=== PATIENT | female | born 1960 | race Caucasian/White ===

== ENCOUNTER 2018-02-10 14:17 | Outpatient (CLI) | payer MEDICAID ==
[~2018-02-10 14:17] MED LIST: ACYC400T PO; ASCO500C15 PO; ASPI-611 PO; CLA10T PO; FLUT16SP26 BOTHNARES; MULT-933 PO; MYC15CR TOP; ZET10T PO; ZOLP5TAB8 PO
== END 2018-02-10 23:59 | disposition home or self-care (01) ==
LOC: RT 14:17
PROVIDERS: ATTEND Internal Medicine Pulmonary Disease
DX: J44.9 Chronic obstructive pulmonary disease, unspecified (principal); Z88.0 Allergy status to penicillin; Z88.5 Allergy status to narcotic agent; Z88.1 Allergy status to other antibiotic agents; Z79.82 Long term (current) use of aspirin; Z90.710 Acquired absence of both cervix and uterus
CPT/HCPCS: 94010; 94727; 94729

== ENCOUNTER 2018-07-21 14:11 | Outpatient (CLI) | payer MEDICAID | END 2018-07-21 23:59 | disposition home or self-care (01) | LOC: RAD 14:11 | PROVIDERS: ATTEND Internal Medicine Gastroenterology | DX: R13.11 Dysphagia, oral phase (principal); Z53.9 Procedure and treatment not carried out, unspecified reason ==

== ENCOUNTER 2020-06-05 17:29 | Emergency (ER) | payer MEDICAID ==
[~2020-06-05] VITALS: Ht 152.4 cm; Wt 79.5 kg
[~2020-06-05 17:29] MED LIST changes: -ASCO500C15 PO; +ASCO500C18 PO
--- NOTE | 2020-06-05 17:55 | NUR ---
REQUESTED ED BED TO [facility]. CHARGE AWARE OF PT VSs and COVID possitve status, awaiting open bed.
[2020-06-05 18:54] LABS: BASOPHILS % (AUTO) 0.6 % (0-1); EOSINOPHILS % (AUTO) 0.3 % (0-6); HEMATOCRIT 45.9 % (35.0-45.0); HEMOGLOBIN 15.9 g/dl (12.0-16.0); LYMPHOCYTES # (AUTO) 1.5 X10'3 (1.1-4.8); LYMPHOCYTES % (AUTO) 24.6 % (21-51); MEAN CORPUSCULAR HEMOGLOBIN 31.7 PG (27.0-31.0); MEAN CORPUSCULAR HGB CONC 34.6 g/dL (33.0-36.5); MEAN CORPUSCULAR VOLUME 91.7 FL (78-98); MEAN PLATELET VOLUME 7.7 FL (7.4-10.4); MONOCYTES # (AUTO) 0.8 X10'3 (0-0.9); MONOCYTES % (AUTO) 13.2 % (2-12); NEUTROPHILS # (AUTO) 3.7 X10'3 (1.8-7.7); NEUTROPHILS % (AUTO) 61.3 % (42-75); PLATELET COUNT 246 X10'3 (140-440); RED BLOOD COUNT 5.01 X10'6 (4.20-5.60); RED CELL DISTRIBUTION WIDTH 13.3 % (11.5-14.5); WHITE BLOOD COUNT 6.1 X10'3 (4.5-11.0)
[2020-06-05 19:09] LABS: ALANINE AMINOTRANSFERASE 61 U/L (12-78); ALBUMIN 4.1 G/DL (3.4-5.0); ALBUMIN/GLOBULIN RATIO 1.1 (1.1-1.5); ALKALINE PHOSPHATASE 113 IU/L (46-116); ANION GAP 10 (8-16); ASPARTATE AMINO TRANSFERASE 40 U/L (10-37); BILIRUBIN,TOTAL 0.7 MG/DL (0.1-1.0); BLOOD UREA NITROGEN 20 MG/DL (7-18); BUN/CREATININE RATIO 21.7 (6.6-38.0); CALCIUM 9.2 MG/DL (8.5-10.1); CHLORIDE 105 MMOL/L (99-107); CREATININE 0.92 MG/DL (0.40-0.90); GLUCOSE 122 MG/DL (70-104); POTASSIUM 3.7 MMOL/L (3.5-5.1); SODIUM 142 MMOL/L (135-145); TOTAL CARBON DIOXIDE 27.1 MMOL/L (24-32); TOTAL PROTEIN 7.9 G/DL (6.4-8.2); eGFR 62 ML/MIN
[2020-06-05] MEDS ORDERED: [UNRECOGNIZED DRUG - OTHER] IV ONE (19:50)
[2020-06-05] MEDS ORDERED: normal saline 1000ML IV soln IVB ONE (19:50)
[2020-06-05] MEDS ORDERED: benzonatate 100mg capsule PO ONE (19:50)
[2020-06-05] MEDS ORDERED: acetaminophen 325mg tablet PO ONE (20:00)
--- NOTE | 2020-06-05 21:17 | NUR ---
PT COMPLAINING OF LEG MUSCLE CRAMPS AND WORRIED ITS A SIDE AFFECT OF INFUSION. LUCIUS CHONG NOTIFIED AND VERBAL ORDER FOR 25 MG BENADRYL PO AND 30 MG TORADOL IV
[2020-06-05] MEDS ORDERED: ketorolac trometh. 30mg/ml inj. IV ONE (21:20)
[2020-06-05] MEDS ORDERED: diphenhydrAMINE 25mg capsule PO ONE (21:20)
--- NOTE | 2020-06-05 21:34 | NUR ---
gave pt casirivimab and imdevimab infusion, stayed in room for first 15 minutes and performed q 15 vitals, there was no adverse reactions noted during transfusion.
[2020-06-05 22:55] VITALS: BP 131/64
== END 2020-06-05 22:45 | disposition home or self-care (01) ==
LOC: ER 17:29
DX: U07.1 COVID-19 (principal); R05 Cough; R11.0 Nausea; R06.02 Shortness of breath; R07.89 Other chest pain; I10 Essential (primary) hypertension; G89.29 Other chronic pain; Z86.73 Personal history of transient ischemic attack (TIA), and cerebral infarction without residual deficits; Z86.69 Personal history of other diseases of the nervous system and sense organs; Z90.710 Acquired absence of both cervix and uterus; Z98.890 Other specified postprocedural states; Z88.0 Allergy status to penicillin; Z88.5 Allergy status to narcotic agent; Z88.8 Allergy status to other drugs, medicaments and biological substances; Z79.2 Long term (current) use of antibiotics; Z79.82 Long term (current) use of aspirin; Z79.899 Other long term (current) drug therapy
CPT/HCPCS: 36415; 71045; 80053; 83605; 83880; 84145; 85025; 87040; 96361; 96365; 96375; 99285; J1885; J7030; J7050; Q0163

== ENCOUNTER 2020-07-13 17:02 | Emergency (ER) | payer MEDICAID ==
[~2020-07-13] VITALS: Ht 152.4 cm; Wt 80.7 kg
[2020-07-13 17:43] LABS: BASOPHILS # (AUTO) 0.1 X10'3 (0-0.2); BASOPHILS % (AUTO) 0.7 % (0-1); EOSINOPHILS # (AUTO) 0.2 X10'3 (0-0.9); HEMATOCRIT 42.9 % (35.0-45.0); HEMOGLOBIN 14.9 g/dl (12.0-16.0); LYMPHOCYTES # (AUTO) 2.5 X10'3 (1.1-4.8); LYMPHOCYTES % (AUTO) 27.5 % (21-51); MEAN CORPUSCULAR HEMOGLOBIN 32.4 PG (27.0-31.0); MEAN CORPUSCULAR HGB CONC 34.8 g/dL (33.0-36.5); MEAN CORPUSCULAR VOLUME 93.1 FL (78-98); MONOCYTES # (AUTO) 0.8 X10'3 (0-0.9); MONOCYTES % (AUTO) 8.8 % (2-12); NEUTROPHILS # (AUTO) 5.5 X10'3 (1.8-7.7); PLATELET COUNT 248 X10'3 (140-440); RED BLOOD COUNT 4.61 X10'6 (4.20-5.60); WHITE BLOOD COUNT 9.1 X10'3 (4.5-11.0)
[2020-07-13 17:58] LABS: ALANINE AMINOTRANSFERASE 46 U/L (12-78); ALBUMIN 3.9 G/DL (3.4-5.0); ALBUMIN/GLOBULIN RATIO 1.1 (1.1-1.5); ALKALINE PHOSPHATASE 106 IU/L (46-116); ANION GAP 9 (8-16); BILIRUBIN,TOTAL 0.6 MG/DL (0.1-1.0); BLOOD UREA NITROGEN 24 MG/DL (7-18); BUN/CREATININE RATIO 27.6 (6.6-38.0); CHLORIDE 106 MMOL/L (99-107); CREATININE 0.87 MG/DL (0.40-0.90); GLUCOSE 119 MG/DL (70-104); SODIUM 139 MMOL/L (135-145); TOTAL CARBON DIOXIDE 23.6 MMOL/L (24-32); TOTAL PROTEIN 7.5 G/DL (6.4-8.2); eGFR 67 ML/MIN
[2020-07-13 18:00] LABS: POTASSIUM 4.2 MMOL/L (3.5-5.1)
[2020-07-13 18:01] LABS: ASPARTATE AMINO TRANSFERASE 36 U/L (10-37)
[2020-07-13 18:23] VITALS: BP 136/77
== END 2020-07-13 18:25 | disposition home or self-care (01) ==
LOC: ER 17:02
DX: R07.89 Other chest pain (principal); M79.89 Other specified soft tissue disorders; I10 Essential (primary) hypertension; G89.29 Other chronic pain; Z86.73 Personal history of transient ischemic attack (TIA), and cerebral infarction without residual deficits; Z86.69 Personal history of other diseases of the nervous system and sense organs; Z90.710 Acquired absence of both cervix and uterus; Z98.890 Other specified postprocedural states; Z88.5 Allergy status to narcotic agent; Z88.0 Allergy status to penicillin; Z88.8 Allergy status to other drugs, medicaments and biological substances; Z79.2 Long term (current) use of antibiotics; Z79.899 Other long term (current) drug therapy
CPT/HCPCS: 36415; 71045; 80053; 83880; 84484; 85025; 93005; 99285

== ENCOUNTER 2020-12-08 15:07 | Emergency (ER) | payer MEDICAID ==
[~2020-12-08] VITALS: Ht 152.4 cm; Wt 81.8 kg
[~2020-12-08 15:07] MED LIST changes: +ACYC-126 PO; -ACYC400T PO
[2020-12-08 15:57] LABS: BASOPHILS % (AUTO) 0.2 % (0-1); EOSINOPHILS # (AUTO) 0.1 X10'3 (0-0.9); EOSINOPHILS % (AUTO) 1.6 % (0-6); HEMATOCRIT 42.5 % (35.0-45.0); HEMOGLOBIN 14.7 g/dl (12.0-16.0); LYMPHOCYTES # (AUTO) 2.6 X10'3 (1.1-4.8); LYMPHOCYTES % (AUTO) 33.1 % (21-51); MEAN CORPUSCULAR HGB CONC 34.5 g/dL (33.0-36.5); MEAN CORPUSCULAR VOLUME 92.7 FL (78-98); MEAN PLATELET VOLUME 8.1 FL (7.4-10.4); MONOCYTES # (AUTO) 0.5 X10'3 (0-0.9); MONOCYTES % (AUTO) 6.6 % (2-12); NEUTROPHILS # (AUTO) 4.6 X10'3 (1.8-7.7); NEUTROPHILS % (AUTO) 58.5 % (42-75); PLATELET COUNT 213 X10'3 (140-440); RED BLOOD COUNT 4.59 X10'6 (4.20-5.60); RED CELL DISTRIBUTION WIDTH 13.6 % (11.5-14.5); WHITE BLOOD COUNT 7.8 X10'3 (4.5-11.0)
[2020-12-08 16:02] LABS: ALANINE AMINOTRANSFERASE 39 U/L (12-78); ALBUMIN 3.8 G/DL (3.4-5.0); ALBUMIN/GLOBULIN RATIO 1.1 (1.1-1.5); ALKALINE PHOSPHATASE 105 IU/L (46-116); ANION GAP 8 (8-16); ASPARTATE AMINO TRANSFERASE 29 U/L (10-37); BILIRUBIN,TOTAL 0.8 MG/DL (0.1-1.0); BLOOD UREA NITROGEN 18 MG/DL (7-18); BUN/CREATININE RATIO 19.6 (6.6-38.0); CALCIUM 8.8 MG/DL (8.5-10.1); CHLORIDE 107 MMOL/L (99-107); CREATININE 0.92 MG/DL (0.40-0.90); GLUCOSE 124 MG/DL (70-104); POTASSIUM 3.8 MMOL/L (3.5-5.1); SODIUM 142 MMOL/L (135-145); TOTAL CARBON DIOXIDE 27.1 MMOL/L (24-32); TOTAL PROTEIN 7.2 G/DL (6.4-8.2); eGFR 62 ML/MIN
--- NOTE | 2020-12-08 16:25 | NUR ---
DR. GEE AT BEDSIDE.
[2020-12-08] MEDS ORDERED: iohexol 350MG/ML 100ml bottle IV ONE (16:48)
--- NOTE | 2020-12-08 17:03 | NUR ---
patient back from ct.
--- NOTE | 2020-12-08 17:52 | NUR ---
awaiting tele neuro consult,monitor inside the room.
--- NOTE | 2020-12-08 19:48 | NUR ---
Pt will have MRI tomorrow morning
[2020-12-08] MEDS ORDERED: morphine 2 MG/ML inj. syringe IV PRN (19:50)
[2020-12-08] MEDS ORDERED: acetaminophen 325mg tablet PO PRN ×2 (19:50)
[2020-12-08] MEDS ORDERED: HYDROcodone/acetaminophen 5mg/325mg tablet PO PRN (19:50)
[2020-12-08] MEDS ORDERED: magnesium 2GM in 50ml NS 50 ML IV PRN (19:50)
[2020-12-08] MEDS ORDERED: mag hydrox/Alum hydrox/simeth 30ml oral suspension PO PRN (19:50)
[2020-12-08] MEDS ORDERED: magnesium hydroxide 30ml (MOM) UD suspension PO PRN (19:50)
[2020-12-08] MEDS ORDERED: magnesium Cl slow-release 64mg tablet PO PRN (19:50)
[2020-12-08] MEDS ORDERED: magnesium 4gm in 100ml NS 100 ML IV PRN (19:50)
[2020-12-08] MEDS ORDERED: ondansetron/PF 4mg/2ml inj IV PRN (19:50)
[2020-12-08] MEDS ORDERED: potassium Cl 20 mEq SR tablet PO PRN ×2 (19:50)
[2020-12-08] MEDS ORDERED: potassium Cl 40MEQ/1/2NS 520ml 520 ML IV PRN ×2 (19:50)
[2020-12-08] MEDS: K and/or MAG REPLACEMENT MC SCH (20:00)
[2020-12-08] MEDS: heparin, porcine 5000 units/ml vial SQ SCH (20:45)
[2020-12-08] MEDS: normal saline 1000ml 1,000 ML IV SCH (20:45)
[2020-12-08] MEDS ORDERED: temazepam 15mg capsule PO PRN (21:00)
[2020-12-08] MEDS ORDERED: MONT10TA32 PO (23:39)
[2020-12-08] MEDS ORDERED: OMEP40CA21 PO (23:39)
--- NOTE | 2020-12-09 00:13 | NUR ---
Patient transfered from [facility] to [facility] bed for comfort.
--- NOTE | 2020-12-09 00:44 | NUR ---
Med rec completed. approved order for patient home ely Vang.
[2020-12-09] MEDS ORDERED: zolpidem 5mg tablet PO ONE (00:45)
[2020-12-09 04:46] LABS: ALANINE AMINOTRANSFERASE 40 U/L (12-78); ALBUMIN 3.3 G/DL (3.4-5.0); ALKALINE PHOSPHATASE 95 IU/L (46-116); ANION GAP 9 (8-16); ASPARTATE AMINO TRANSFERASE 27 U/L (10-37); BILIRUBIN,TOTAL 0.8 MG/DL (0.1-1.0); BLOOD UREA NITROGEN 17 MG/DL (7-18); BUN/CREATININE RATIO 18.5 (6.6-38.0); CALCIUM 8.4 MG/DL (8.5-10.1); CHLORIDE 105 MMOL/L (99-107); CREATININE 0.92 MG/DL (0.40-0.90); GLUCOSE 104 MG/DL (70-104); POTASSIUM 3.4 MMOL/L (3.5-5.1); SODIUM 141 MMOL/L (135-145); TOTAL CARBON DIOXIDE 27.1 MMOL/L (24-32); TOTAL PROTEIN 6.7 G/DL (6.4-8.2); eGFR 62 ML/MIN
[2020-12-09 04:51] LABS: CHOL/HDL RATIO 6.6 (0.00-4.99); CHOLESTEROL 231 MG/DL (0-200); HDL CHOLESTEROL 35 MG/DL (35-60); LDL CHOLESTEROL 158 MG/DL (50-100); MAGNESIUM 2.2 MG/DL (1.5-2.4); TRIGLYCERIDES 222 MG/DL (20-135)
[2020-12-09] MEDS: normal saline 1000ml 1,000 ML IV SCH (05:50)
[2020-12-09] MEDS ORDERED: ezetimibe 10mg tablet PO SCH (08:00)
[2020-12-09] MEDS ORDERED: atorvastatin 20mg tablet PO SCH (08:00)
[2020-12-09] MEDS ORDERED: montelukast 10mg tablet PO SCH (08:00)
[2020-12-09] MEDS: K and/or MAG REPLACEMENT MC SCH (08:00)
[2020-12-09] MEDS ORDERED: aspirin 81mg tablet.DR PO SCH (08:00)
[2020-12-09] MEDS ORDERED: LORazepam 0.5 MG tablet PO PRN ×2 (08:55→09:00)
[2020-12-09] MEDS: heparin, porcine 5000 units/ml vial SQ SCH (09:16)
[2020-12-09] MEDS ORDERED: GADOTERATE MEGLUMINE 7.5 MMOL/15 ML VIAL IV ONE (11:44)
[2020-12-09 12:13] LABS: BASOPHILS % (AUTO) 0.3 % (0-1); EOSINOPHILS # (AUTO) 0.2 X10'3 (0-0.9); EOSINOPHILS % (AUTO) 2.4 % (0-6); HEMATOCRIT 41.4 % (35.0-45.0); HEMOGLOBIN 14.2 g/dl (12.0-16.0); LYMPHOCYTES # (AUTO) 2.3 X10'3 (1.1-4.8); LYMPHOCYTES % (AUTO) 35.2 % (21-51); MEAN CORPUSCULAR HGB CONC 34.3 g/dL (33.0-36.5); MEAN CORPUSCULAR VOLUME 93.3 FL (78-98); MEAN PLATELET VOLUME 7.9 FL (7.4-10.4); MONOCYTES # (AUTO) 0.6 X10'3 (0-0.9); MONOCYTES % (AUTO) 8.8 % (2-12); NEUTROPHILS # (AUTO) 3.5 X10'3 (1.8-7.7); NEUTROPHILS % (AUTO) 53.3 % (42-75); PLATELET COUNT 187 X10'3 (140-440); RED BLOOD COUNT 4.44 X10'6 (4.20-5.60); RED CELL DISTRIBUTION WIDTH 13.8 % (11.5-14.5); WHITE BLOOD COUNT 6.6 X10'3 (4.5-11.0)
--- NOTE | 2020-12-09 14:08 | NUR ---
NURSE PRECIADO IS BUSY AT THIS TIME.
--- NOTE | 2020-12-09 14:25 | NUR ---
Report received from ED RNShubham
--- NOTE | 2020-12-09 15:24 | NUR ---
LUZ SPOKE TO LETTER CARRIER REGARDING PT D/C .PT STATE DTHAT SHE IS GOING HOME PER DR MOULTON AND NEED TO F/U WITH PCP .
[2020-12-09 16:12] VITALS: BP 130/71
[2020-12-09 17:59] LABS: CLARITY,URINE CLEAR (Clear); COLOR,URINE STRAW (Yellow); GLUCOSE, URINE NEGATIVE (Neg); KETONES,URINE NEGATIVE (Neg); LEUKOCYTE ESTERASE ,URINE NEGATIVE (Neg); NITRITES, URINE NEGATIVE (Neg); OCCULT BLOOD,URINE NEGATIVE (Neg); PROTEIN,URINE NEGATIVE (Neg); UROBILINOGEN,URINE 0.2 E.U/dL (0.2-1.0)
[2020-12-09 18:01] LABS: UA COLLECTION TYPE CLN CATCH MIDSTREAM
[2020-12-09] MEDS ORDERED: zolpidem 5mg tablet PO SCH (21:00)
[2020-12-09] MEDS ORDERED: pantoprazole 40mg Tablet.DR PO SCH (21:00)
[2020-12-09] MEDS ORDERED: loratadine 10mg tablet PO SCH (21:00)
== END 2020-12-09 16:16 | disposition home or self-care (01) ==
LOC: ER 15:07 → UNDOADMIN 19:48 → ED HOLD 19:48 → UNDODISIN 12-09 16:12
DX: R53.1 Weakness (principal); R27.0 Ataxia, unspecified; G89.29 Other chronic pain; I10 Essential (primary) hypertension; Z86.73 Personal history of transient ischemic attack (TIA), and cerebral infarction without residual deficits; Z86.69 Personal history of other diseases of the nervous system and sense organs; Z90.710 Acquired absence of both cervix and uterus; Z98.890 Other specified postprocedural states; Z88.0 Allergy status to penicillin; Z88.5 Allergy status to narcotic agent; Z88.8 Allergy status to other drugs, medicaments and biological substances; Z79.2 Long term (current) use of antibiotics; Z79.899 Other long term (current) drug therapy
CPT/HCPCS: 36415; 70450; 70496; 70498; 70553; 71045; 80053; 80061; 81003; 83735; 83880; 84484; 85025; 93005; 96372; 99285; A9575; J1644; J7030; Q9967; G0378

== ENCOUNTER 2024-06-01 20:10 | Emergency (ER) | payer MEDICAID ==
[~2024-06-01] VITALS: Ht 152.4 cm; Wt 75.0 kg
[~2024-06-01 20:10] MED LIST changes: -ASPI-611 PO; +MONT-40 PO; -MYC15CR TOP; +OMEP40CA21 PO
[2024-06-01] MEDS: glucagon, human recombinant 1mg kit IM ONE (23:02)
[2024-06-02 00:01] VITALS: BP 130/74; PULSE 89; RESP 15; TEMP 97.7; O2SAT 95
== END 2024-06-02 00:05 | disposition home or self-care (01) ==
LOC: ER 20:10
DX: T18.128A Food in esophagus causing other injury, initial encounter (principal); I10 Essential (primary) hypertension; C7A.00 Malignant carcinoid tumor of unspecified site; M54.2 Cervicalgia; Z88.0 Allergy status to penicillin; Z88.5 Allergy status to narcotic agent; Z88.8 Allergy status to other drugs, medicaments and biological substances; Z90.710 Acquired absence of both cervix and uterus; Z86.73 Personal history of transient ischemic attack (TIA), and cerebral infarction without residual deficits; W44.F3XA Food entering into or through a natural orifice, initial encounter; Y93.89 Activity, other specified; Y92.89 Other specified places as the place of occurrence of the external cause; Y99.8 Other external cause status
CPT/HCPCS: 70490; 96372; 99285; J1610